=== PATIENT | female | born 1955 | race Caucasian/White ===

== ENCOUNTER 2017-01-28 10:51 | Emergency (ER) | payer OTHER ==
[~2017-01-28] VITALS: Ht 160 cm; Wt 72.6 kg
[2017-01-28 11:17] VITALS: BP 108/76
[2017-01-28] MEDS ORDERED: SYNTHROID0.05 MG PO (11:21)
[2017-01-28] MEDS ORDERED: SYNTHROID0.137 MG PO (11:21)
--- NOTE | 2017-01-28 11:23 | NUR ---
Patient ambulated to bed 07.
--- NOTE | 2017-01-28 11:30 | NUR ---
61/F presents to ED with complaints of syncopal episode this morning around 0700. Patient states she woke up and was trying to get to the restroom but passed out. Patient states "I don't remember the fall but I remember waking up on the floor." Patient also c/o dizziness and nausea. Denies vomiting. Patient also reports c/o pain to left shoulder, neck and upper back but states that this has been an ongoing problem and is unrelated to her fall. Pt describes pain as aching, better with lying left side lateral, worse with changing positions. Patient is AOX4, clear speech, VSS.
--- NOTE | 2017-01-28 11:31 | NUR ---
Dr. Holm evaluating patient at bedside.
[2017-01-28] MEDS ORDERED: MECLIZINE 25 MG TAB PO ONE (11:40)
[2017-01-28] MEDS ORDERED: HYDROcodone/APAP 5/325 MG 1 TAB TAB PO ONE (11:40)
[2017-01-28] MEDS ORDERED: ONDANSETRON 4 MG/2 ML VIAL IVP ONE (11:40)
--- NOTE | 2017-01-28 11:46 | NUR ---
Patient going to CT/XRAY via [facility].
--- NOTE | 2017-01-28 12:05 | NUR ---
Patient back from CT/XRAY via [facility].
--- NOTE | 2017-01-28 12:40 | NUR ---
Dr Holm re-evaluating patient at bedside.
[2017-01-28 12:55] VITALS: BP 112/70
--- NOTE | 2017-01-28 12:55 | NUR ---
Chart checked and completed. The patient's care was reviewed and supervised by Joel Vallejo RN.
--- NOTE | 2017-01-28 12:55 | NUR ---
Patient discharged with v/s stable. Written and verbal after care instructions given and explained. Patient alert, oriented and verbalized understanding of instructions. Ambulatory with steady gait. All questions addressed prior to discharge. ID band removed. Patient advised to follow up with PMD. Rx of MECLIZINE,ZOFRAN given. Patient educated on indication of medication including possible reaction and side effects. Opportunity to ask questions provided and answered.
== END 2017-01-28 12:55 | disposition home or self-care (01) ==
LOC: MED 10:51
DX: R55 Syncope and collapse (principal); R32 Unspecified urinary incontinence; Z88.6 Allergy status to analgesic agent; M54.9 Dorsalgia, unspecified; E03.9 Hypothyroidism, unspecified
CPT/HCPCS: 36415; 70450; 71010; 72080; 80053; 82948; 84484; 85025; 85610; 85730; 93005; 96374; 99285; J2405; J8597